=== PATIENT | male | born 1975 | race Caucasian/White ===

== ENCOUNTER → 2016-11-30 | Outpatient (CLI) | payer OTHER ==
[~2016-11-30] MED LIST: IOPAMIDOL (ISOVUE-300) 100 ML BTL IV ONE
--- NOTE | 2016-11-30 10:14 | CT ---
CT Brain Without and With Contrast at 0928 hours History: G08. History of brain thrombophlebitis. Comparison: None available. Technique: Axial computed tomographic images of the brain prior to and during the uneventful intrave nous administration of 90 mL Isovue-300 contrast. Dose reduction techniques were utilized. CT Brain Without Contrast Findings: Ventricles, cisterns, and sulci are normal without atrophy, hydr ocephalus, midline shift/herniation, or epidural/subdural hematomas. No intraparenchymal hemorrhage, definite infarct, or mass effect. Bone windows demonstrate no displaced fractures. Paranasal sinuses and mastoid air cells are clear. CT Brain With Contrast Findings: No evidence of intraaxial enhancing lesions or abnormal leptomeninge al enhancement. No intraluminal filling defects in the [place] vessels. No flow-limiting cherelle nosis, arterial occlusion, or arteriovenous malformations. Superior sagittal sinus and transverse sin uses are patent. Impression: [address] brain without and with contrast enhancement. 2. No evidence of superior sagittal sinus thrombosis. 3. Consider obtaining prior studies for comparison. 4. Consider MRI brain without and with contrast, and MR venogram, if there is continued clinical conc cesar.
== END ==
LOC: FIMAGING 08:46
PROVIDERS: ATTEND Psychiatry & Neurology Neurology
DX: Z86.72 Personal history of thrombophlebitis (principal)
CPT/HCPCS: Q9967

== ENCOUNTER → 2018-06-29 | Outpatient (CLI) | payer OTHER | LOC: BRMIMAGING 07:52 | PROVIDERS: ATTEND Internal Medicine | DX: R74.8 Abnormal levels of other serum enzymes (principal); R79.89 Other specified abnormal findings of blood chemistry | CPT/HCPCS: 76700-PO ==